=== PATIENT | male | born 1990 | race Hispanic/Latino ===

== ENCOUNTER 2019-12-23 19:11 | Observation (INO) | payer SELFPAY ==
[2019-12-23] MEDS ORDERED: METHYLPREDNISOLONE 125 MG INJ ONE (19:43)
[2019-12-23] MEDS ORDERED: IPRATROPIUM BROM 0.5MG/2.5ML ONE (19:44)
[2019-12-23] MEDS ORDERED: NA CHLORIDE 0.9% 1,000 ML ONE (19:44)
[2019-12-23] MEDS ORDERED: ALBUTEROL 2.5 MG/3 ML NEB SOL ONE (19:44)
[2019-12-23 20:14] LABS: Basophils % 0.5 % (0-1.3); Hematocrit 45.4 % (39.6-49.0); Lymphocytes % 14.8 % (15.3-44.8); MPV 9.2 fL (7.6-11.3); RBC Red Blood Cell Count 5.49 M/uL (4.33-5.43)
[2019-12-23 20:15] LABS: Protime INR 1.11
[2019-12-23 20:31] LABS: ALT/SGPT 25 U/L (12-78); AST/SGOT 20 U/L (15-37); Albumin 4.1 g/dL (3.4-5.0); Alkaline Phosphatase 78 U/L (45-117); BUN Blood Urea Nitrogen 13 mg/dL (7-18); Bicarbonate 28 mmol/L (21-32); Bilirubin Direct 0.1 mg/dL (0-0.2); Bilirubin Total 0.4 mg/dL (0.2-1.0); Glucose Level 91 mg/dL (74-106); Magnesium 2.1 mg/dL (1.8-2.4); NT PRO-BNP 31 pg/mL (<125); Protein, Total 7.7 g/dL (6.4-8.2); Sodium Level 141 mmol/L (136-145); Troponin (Emerg Dept Use Only) < 0.02 ng/mL (0.0-0.045)
[2019-12-23 21:10] LABS: Barbiturates NEGATIVE (NEGATIVE); Benzodiazepines NEGATIVE (NEGATIVE); Cocaine NEGATIVE (NEGATIVE); METHAMPHETAM NEGATIVE (NEGATIVE); Methadone NEGATIVE (NEGATIVE); Opiates NEGATIVE (NEGATIVE); Phencyclidine NEGATIVE (NEGATIVE); THC Cannibis NEGATIVE (NEGATIVE)
[2019-12-23 21:19] LABS: Urine Blood NEGATIVE (NEG); Urine Glucose NEGATIVE (NEG); Urine Protein NEGATIVE (NEG)
[2019-12-23 21:20] LABS: Arterial Blood Carboxyhemoglob 0.9 % (0-1.5); Blood Gas Oxyhemoglobin 90.1 % (94-97); Blood O2 Saturation 91.6 % (92-98.5)
[2019-12-23] MEDS ORDERED: METOPROLOL TARTRATE 5 MG/5 ML INJ IV ONE (21:26)
--- NOTE | 2019-12-23 22:30 | EDPHYS ---
Physician Documentation [facility] Name: Mike Steen Age: 29 yrs Sex: Male : 1990 Arrival Date: 12/23/2019 Time: 19:14 Bed 5 Private MD: None, None ED Physician Italo Stokes HPI: 12/23 19:34 This 29 yrs old Male presents to ER via Ambulatory with complaints of pkl Breathing Difficulty. 19:34 The patient has shortness of breath at rest. Onset: The symptoms/episode began/occurred pkl this morning. Associated signs and symptoms: Pertinent positives: non-productive cough. The patient has experienced similar episodes in the past, a few times. Historical: - Allergies: 19:18 No Known Allergies; aj1 - Home Meds: 19:18 Buspirone Oral [Active]; aj1 - PMHx: 19:18 Anxiety; aj1 - Immunization history:: Flu vaccine is not up to date. - Coronavirus screen:: The patient has NOT traveled to [place], [place], or [place] in the past 14 days. - Social history:: Smoking status: Patient reports the use of cigarette tobacco products, 6 cigarettes per day. - Ebola Screening: : Patient denies travel to an Ebola-affected area in the 21 days before illness onset. ROS: 19:34 Eyes: Negative for injury, pain, redness, and discharge, ENT: Negative for injury, pkl pain, and discharge, Neck: Negative for injury, pain, and swelling, Cardiovascular: Negative for chest pain, palpitations, and edema. 19:34 Respiratory: Positive for cough, with no reported sputum, shortness of breath, at rest. 19:34 Abdomen/GI: Negative for abdominal pain, nausea, vomiting, and diarrhea. 19:34 Back: Negative for pain at rest. 19:34 : Negative for urinary symptoms. 19:34 MS/extremity: Negative for acute changes. 19:34 Skin: Negative for rash. 19:34 Neuro: Negative for altered mental status. Exam: 19:34 Head/Face: Normocephalic, atraumatic. Eyes: Pupils equal round and reactive to light, pkl extra-ocular motions intact. Lids and lashes normal. Conjunctiva and sclera are non-icteric and not injected. Cornea within normal limits. Periorbital areas with no swelling, redness, or edema. ENT: Nares patent. No nasal discharge, no septal abnormalities noted. Tympanic membranes are normal and external auditory canals are clear. Oropharynx with no redness, swelling, or masses, exudates, or evidence of obstruction, uvula midline. Mucous membranes moist. Neck: Trachea midline, no thyromegaly or masses palpated, and no cervical lymphadenopathy. Supple, full range of motion without nuchal rigidity, or vertebral point tenderness. No Meningismus. Chest/axilla: Normal chest wall appearance and motion. Nontender with no deformity. No lesions are appreciated. Cardiovascular: Regular rate and rhythm with a normal S1 and S2. No gallops, murmurs, or rubs. Normal PMI, no JVD. No pulse deficits. 19:34 Respiratory: mild respiratory distress is noted, Respirations: labored breathing, that is mild, Breath sounds: bronchial sounds, that are moderate, are heard diffusely, rhonchi, that are moderate, are heard diffusely. 19:34 Abdomen/GI: Bowel sounds: normal, Palpation: abdomen is soft and non-tender, in all quadrants. 19:34 Back: Exam negative for acute changes. 19:34 : Exam negative for acute changes. 19:34 Musculoskeletal/extremity: Exam is negative for acute changes. 19:34 Skin: Exam negative for rash. 19:34 Neuro: Orientation: is normal, Mentation: is normal, Cranial nerves: grossly normal, Motor: is normal. Vital Signs: 19:15 BP 120 / 86; Pulse 138; Resp 32; Temp 98.5; Pulse Ox 94% on R/A; Weight 74.84 kg (R); aj1 Height 5 ft. 9 in. (175.26 cm) (R); Pain 0/10; 20:00 BP 135 / 88; Pulse 112; Resp 18; Pulse Ox 96% ; ea 21:30 BP 135 / 79; Pulse 112; Resp 19; Pulse Ox 99% on R/A; rr5 21:36 BP 121 / 78; Pulse 91; Resp 17; Pulse Ox 98% ; rr5 22:20 BP 128 / 81; Pulse 92; Resp 16; Pulse Ox 98% ; rr5 23:10 BP 132 / 81; Pulse 85; Resp 18; Temp 98; Pulse Ox 98% on R/A; ea 23:30 BP 132 / 81; Pulse 82; Resp 20; Temp 98; Pulse Ox 99% ; Pain 0/10; rr5 19:15 Body Mass Index 24.37 (74.84 kg, 175.26 cm) aj1 MDM: 19:22 Patient medically screened. pkl 20:37 Data reviewed: vital signs, nurses notes, lab test result(s), D-dimer ( 833 ) CT PE pkl Chest Angio ordered.. 22:27 Data reviewed: radiologic studies, CT scan, plain films. ED course: Talked to Dr. Lara, [facility] admit. 12/23 19:32 Order name: Basic Metabolic Panel; Complete Time: 20:33 pkl 12/23 19:32 Order name: CBC with Diff; Complete Time: 20:27 pkl 12/23 19:32 Order name: LFT's; Complete Time: 20:33 pkl 12/23 19:32 Order name: Magnesium; Complete Time: 20:33 pkl 12/23 19:32 Order name: NT PRO-BNP; Complete Time: 20:33 pkl 12/23 19:32 Order name: PT-INR; Complete Time: 20:27 pkl 12/23 19:32 Order name: Troponin (emerg Dept Use Only); Complete Time: 20:33 pkl 12/23 19:34 Order name: D-Dimer; Complete Time: 20:27 pkl 12/23 19:34 Order name: UDS; Complete Time: 22:07 pkl 12/23 19:34 Order name: ABG; Complete Time: 22:07 pkl 12/23 21:00 Order name: Urine Dipstick--Ancillary (enter results); Complete Time: 22:07 mw2 12/23 23:20 Order name: CBC with Automated Diff EDMS 12/23 23:20 Order name: CBC with Automated Diff EDMS 12/23 23:20 Order name: Comprehensive Metabolic Panel EDMS 12/23 19:32 Order name: XRAY Chest (1 view) pkl 12/23 19:32 Order name: EKG; Complete Time: 19:33 pkl 12/23 19:32 Order name: Cardiac monitoring; Complete Time: 20:13 pkl 12/23 19:32 Order name: EKG - Nurse/Tech; Complete Time: 20:13 pkl 12/23 19:32 Order name: IV Saline Lock; Complete Time: 20:13 pkl 12/23 19:32 Order name: Labs collected and sent; Complete Time: 20:13 pkl 12/23 19:32 Order name: O2 Per Protocol; Complete Time: 20:13 pkl 12/23 20:34 Order name: CT Chest For PE Angio pkl 12/23 23:20 Order name: CONS Pharmacy Consult EDNY 12/23 23:20 Order name: CONS Physician Consult EDNY 12/23 23:20 Order name: Heart Healthy EDNY 12/23 23:20 Order name: Comprehensive Metabolic Panel EDNY 12/23 19:32 Order name: O2 Sat Monitoring; Complete Time: 20:13 pkl Administered Medications: 19:45 Drug: Albuterol - atroVENT (3:1) (2.5 mg - 0.5 mg) 3 ml Route: Nebulizer; ea 20:45 Follow up: Response: No adverse reaction rr5 20:04 Drug: NS 0.9% 1000 ml Route: IV; Rate: 125 ml/hr; Site: right antecubital; ea 23:30 Follow up: IV Status: Infusion continued upon admission; IV Intake: 350ml rr5 23:37 Follow up: Response: No adverse reaction; IV Status: Infusion continued upon admission rr5 20:04 Drug: SOLU-Medrol 125 mg Route: IVP; Site: right antecubital; ea 21:00 Follow up: Response: No adverse reaction; Marked relief of symptoms rr5 21:30 Drug: Lopressor 5 mg Route: IVP; Site: right antecubital; rr5 22:30 Follow up: Response: No adverse reaction; HR 89bpm rr5 Disposition: 12/23/19 22:30 Hospitalization ordered by Tao Lara for Inpatient Admission. Preliminary diagnosis is Acute dyspnea. Asthmatic bronchitis. Pneumomediastinum. - Bed requested for Telemetry/MedSurg (Inpatient). - Status is Inpatient Admission. rr5 - Condition is Stable. - Problem is new. - Symptoms have improved. UTI on Admission? No Signatures: Dispatcher [employer] Patricia Dixon RN RN aj1 Webb, Martha, RN RN mw Lam, Pin, MD MD pkl Antunez, Elena, RN RN ea Roque, Raymond, RN RN rr5 Corrections: (The following items were deleted from the chart) 23:05 22:30 Hospitalization Ordered by Tao Lara MD for Inpatient Admission. Preliminary mw diagnosis is Acute dyspnea. Asthmatic bronchitis. Pneumomediastinum. Bed requested for Telemetry/MedSurg (Inpatient). Status is Inpatient Admission. Condition is Stable. Problem is new. Symptoms have improved. UTI on Admission? No. pkl 23:45 23:05 12/23/2019 22:30 Hospitalization Ordered by Tao Lara MD for Inpatient rr5 Admission. Preliminary diagnosis is Acute dyspnea. Asthmatic bronchitis. Pneumomediastinum. Bed requested for Telemetry/MedSurg (Inpatient). Status is Inpatient Admission. Condition is Stable. Problem is new. Symptoms have improved. UTI on Admission? No. mw
--- NOTE | 2019-12-23 22:30 | ER ---
Nurse's Notes [facility] Name: Mike Steen Age: 29 yrs Sex: Male : 1990 Arrival Date: 12/23/2019 Time: 19:14 Bed 5 Private MD: None, None Diagnosis: Acute dyspnea. Asthmatic bronchitis. Pneumomediastinum Presentation: 12/23 19:15 Presenting complaint: Patient states: Shortness of breath since 11:30 today, patient aj1 reports cough since yesterday. Denies fever. Patient is tachypneic with labored respirations, patient is unable to speak a full sentence without taking a breath. Transition of care: patient was not received from another setting of care. Onset of symptoms was December 23, 2019 at 11:30. Risk Assessment: Do you want to hurt yourself or someone else? Patient reports no desire to harm self or others. Initial Sepsis Screen: Does the patient meet any 2 criteria? RR > 20 per min. HR > 90 bpm. Does the patient have a suspected source of infection? Yes: Productive cough/pneumonia. Care prior to arrival: None. 19:15 Method Of Arrival: Ambulatory aj 19:15 Acuity: TICO 2 aj1 Triage Assessment: 19:18 General: Appears uncomfortable, Behavior is calm, cooperative, appropriate for age. aj1 Pain: Denies pain. Neuro: Level of Consciousness is awake, alert, obeys commands, Oriented to person, place, time, situation. Cardiovascular: Patient's skin is warm and dry. Respiratory: Reports shortness of breath at rest cough that is non-productive, Airway is patent Respiratory effort is even, labored, Respiratory pattern is regular, tachypnea Onset: The symptoms/episode began/occurred suddenly, the patient has moderate shortness of breath. Historical: - Allergies: 19:18 No Known Allergies; aj1 - Home Meds: 19:18 Buspirone Oral [Active]; aj1 - PMHx: 19:18 Anxiety; aj1 - Immunization history:: Flu vaccine is not up to date. - Coronavirus screen:: The patient has NOT traveled to [place], [place], or [place] in the past 14 days. - Social history:: Smoking status: Patient reports the use of cigarette tobacco products, 6 cigarettes per day. - Ebola Screening: : Patient denies travel to an Ebola-affected area in the 21 days before illness onset. Screenin:06 Abuse screen: Denies threats or abuse. Nutritional screening: No deficits noted. ea Tuberculosis screening: No symptoms or risk factors identified. Fall Risk None identified. Assessment: 19:36 General: Appears uncomfortable, Behavior is appropriate for age. Pain: Denies pain. ea Neuro: Level of Consciousness is awake, alert, obeys commands, Oriented to person, place, time, situation. Cardiovascular: Patient's skin is warm and dry. Respiratory: Airway is patent Respiratory effort is even, labored, Respiratory pattern is symmetrical, tachypnea Breath sounds with wheezes. Derm: Skin is pink, warm \T\ dry. 20:55 Reassessment: Patient and/or family updated on plan of care and expected duration. Pain ea level reassessed. Patient is alert, oriented x 3, equal unlabored respirations, skin warm/dry/pink. Pt taken to CT. 21:37 Reassessment: Patient appears in no apparent distress at this time. Patient is alert, rr5 oriented x 3, equal unlabored respirations, skin warm/dry/pink. no complaints made, awaiting for result. Patient states symptoms have improved. 22:22 Reassessment: Patient and/or family updated on plan of care and expected duration. Pain ea level reassessed. Patient is alert, oriented x 3, equal unlabored respirations, skin warm/dry/pink. 23:10 Reassessment: Patient and/or family updated on plan of care and expected duration. Pain ea level reassessed. Patient is alert, oriented x 3, equal unlabored respirations, skin warm/dry/pink. 23:35 Cardiovascular: Rhythm is sinus rhythm. rr5 23:35 Reassessment: Patient appears in no apparent distress at this time. Patient is alert, rr5 oriented x 3, equal unlabored respirations, skin warm/dry/pink. for transfer to room 406 Patient denies pain at this time. Patient states feeling better. Patient states symptoms have improved. Vital Signs: 19:15 BP 120 / 86; Pulse 138; Resp 32; Temp 98.5; Pulse Ox 94% on R/A; Weight 74.84 kg (R); aj1 Height 5 ft. 9 in. (175.26 cm) (R); Pain 0/10; 20:00 BP 135 / 88; Pulse 112; Resp 18; Pulse Ox 96% ; ea 21:30 BP 135 / 79; Pulse 112; Resp 19; Pulse Ox 99% on R/A; rr5 21:36 BP 121 / 78; Pulse 91; Resp 17; Pulse Ox 98% ; rr5 22:20 BP 128 / 81; Pulse 92; Resp 16; Pulse Ox 98% ; rr5 23:10 BP 132 / 81; Pulse 85; Resp 18; Temp 98; Pulse Ox 98% on R/A; ea 23:30 BP 132 / 81; Pulse 82; Resp 20; Temp 98; Pulse Ox 99% ; Pain 0/10; rr5 19:15 Body Mass Index 24.37 (74.84 kg, 175.26 cm) aj1 ED Course: 19:14 Patient arrived in ED. es 19:14 None, None is Private Physician. es 19:15 Arm band placed on Patient placed in an exam room. aj1 19:18 Triage completed. aj1 19:22 Italo Stokes MD is Attending Physician. pkl 19:36 Stacy Mejía RN is Primary Nurse. ea 20:06 Patient has correct armband on for positive identification. Bed in low position. Call ea light in reach. 20:06 Inserted saline lock: 20 gauge in right antecubital area, using aseptic technique. ea Blood collected. 20:26 Notified ED physician of a critical lab result(s). D-Dimer of 833 Dr Stokes notified. bb 20:48 XRAY Chest (1 view) In Process Unspecified. EDMS 20:50 X-ray completed. Portable x-ray completed in exam room. Patient tolerated procedure mh1 well. 21:15 CT Chest For PE Angio In Process Unspecified. EDMS 22:28 Tao Lara MD is Hospitalizing Provider. pkl 23:09 No provider procedures requiring assistance completed. Patient admitted, IV remains in ea place. Administered Medications: 19:45 Drug: Albuterol - atroVENT (3:1) (2.5 mg - 0.5 mg) 3 ml Route: Nebulizer; ea 20:45 Follow up: Response: No adverse reaction rr5 20:04 Drug: NS 0.9% 1000 ml Route: IV; Rate: 125 ml/hr; Site: right antecubital; ea 23:30 Follow up: IV Status: Infusion continued upon admission; IV Intake: 350ml rr5 23:37 Follow up: Response: No adverse reaction; IV Status: Infusion continued upon admission rr5 20:04 Drug: SOLU-Medrol 125 mg Route: IVP; Site: right antecubital; ea 21:00 Follow up: Response: No adverse reaction; Marked relief of symptoms rr5 21:30 Drug: Lopressor 5 mg Route: IVP; Site: right antecubital; rr5 22:30 Follow up: Response: No adverse reaction; HR 89bpm rr5 Intake: 23:30 IV: 350ml; Total: 350ml. rr5 Outcome: 22:30 Decision to Hospitalize by Provider. pkl 23:09 Discharge instructions given to patient, Instructed on the need for admit, Demonstrated ea understanding of instructions. 23:35 Admitted to Tele accompanied by tech, via wheelchair, room 406, with chart, Report rr5 called to martina 23:35 Condition: stable 23:45 Patient left the ED. rr5 Signatures: Dispatcher [employer] Patricia Juarez RN RN aj Italo Stokes MD MD pkl Salyer, Edna es Harvey, Martha [facility] Gaviota Cummings RN RN bb Antunez, Elena, RN RN ea Roque, Raymond RN RN rr5 Corrections: (The following items were deleted from the chart) 19:18 19:14 Presenting complaint: aj1 aj 19:21 19:15 Presenting complaint: Patient states: Shortness of breath since 11:30 today, aj1 patient reports cough since yesterday. Denies fever. [facility] 19:21 19:15 Acuity: TICO 3 aj1 [facility]
[2019-12-23] MEDS ORDERED: MORPHINE 2 MG/ML SYR IV PRN (23:14)
[2019-12-23] MEDS ORDERED: ONDANSETRON 4 MG/2 ML VIAL IV PRN (23:14)
[2019-12-23] MEDS ORDERED: ACETAMINOPHEN 500 MG TAB PO PRN (23:14)
[2019-12-23] MEDS ORDERED: D5 0.9 NS 1,000 ML IV SCH (23:45)
[2019-12-23] MEDS: NA CHLORIDE 0.9% 1,000 ML IV SCH (23:45)
[2019-12-24 00:45] VITALS: BMI 24.0
[2019-12-24] MEDS ORDERED: ALBUTEROL 2.5 MG/3 ML NEB SOL NEB SCH (01:00)
[2019-12-24] MEDS: METHYLPREDNISOLONE 125 MG INJ IV SCH ×3 (01:23→11:21)
[2019-12-24] MEDS ORDERED: IPRATROPIUM BROM 0.5MG/2.5ML NEB SCH (02:00)
[2019-12-24] MEDS ORDERED: ALBUTEROL 2.5 MG/3 ML NEB SOL ONE (03:18)
[2019-12-24] MEDS: IPRATROPIUM BROM 0.5MG/2.5ML NEB SCH ×2 (03:35→08:20)
[2019-12-24] MEDS ORDERED: GUAIFENESIN/CODEINE 5ML UCUP PO PRN (04:07)
[2019-12-24 05:25] LABS: Absolute Lymphocytes (CBC) 0.7 K/uL (0.7-4.9); Basophils % 0.1 % (0-1.3); Hematocrit 43.2 % (39.6-49.0); Lymphocytes % 7.6 % (15.3-44.8); MPV 9.3 fL (7.6-11.3); RBC Red Blood Cell Count 5.19 M/uL (4.33-5.43)
[2019-12-24 05:49] LABS: Albumin 3.7 g/dL (3.4-5.0); Bilirubin Total 0.5 mg/dL (0.2-1.0); Potassium 4.2 mmol/L (3.5-5.1); Protein, Total 7.1 g/dL (6.4-8.2)
[2019-12-24] MEDS: NA CHLORIDE 0.9% 1,000 ML IV SCH (05:55)
--- NOTE | 2019-12-24 07:35 | RAD REPORT ---
EXAM DESCRIPTION: RAD - Chest Single View - 12/24/2019 7:04 am CLINICAL HISTORY: Pneumomediastinum history COMPARISON: Chest Single View dated 12/23/2019; Chest For Pe Angio dated 12/23/2019 TECHNIQUE: AP portable chest image was obtained 12/24/2019 7:04 amthe . FINDINGS: Lung alvarez are clear. Pneumomediastinum seen on the CT study has either cleared or is rad iographically occult. Heart and vasculature are normal. No measurable pleural effusion and no pneumot horax. No acute bony abnormality seen. No acute aortic findings suspected. IMPRESSION: No acute cardiopulmonary process. No new or progressive process from prior imaging. Pneumomediastinum seen on the prior day CT study has cleared or is radiographically occult.
[2019-12-24 07:56] LABS: Blood Morphology Comment NOT SEEN (NOT SEEN); Platelet Estimate ADEQ; Urine White Blood Cell Casts OK
--- NOTE | 2019-12-24 07:59 | RAD REPORT ---
EXAM DESCRIPTION: RAD - Chest Single View - 12/23/2019 8:48 pm CLINICAL HISTORY: Cough;Dyspnea COMPARISON: Chest For Pe Angio dated 12/23/2019; Chest Single View dated 12/24/2019 TECHNIQUE: AP portable chest image was obtained 12/23/2019 8:48 pm . FINDINGS: Lung alvarez are clear. Mediastinal and hilar regions show no suspicious finding. Heart and vasculature are normal. No measurable pleural effusion and no pneumothorax. No acute bony abnormalit y seen. No acute aortic findings suspected. IMPRESSION: No acute cardiopulmonary process.
--- NOTE | 2019-12-24 08:25 | EKG ---
Test Date: 2019-12-23 Test Time: 19:50:43 Key Carrier: LEBRON MEASUREMENT RESULTS: Intervals: Rate: 121 IN: 138 QRSD: 78 QT: 330 QTc: 468 Annabella: P: 71 IN: 138 QRS: 25 T: 62 INTERPRETIVE STATEMENTS: Sinus tachycardia Possible Left atrial enlargement Borderline ECG No previous ECG available for comparison Electronically Signed On 12-24-19 08:24:51 [employer] by Ezequiel Allen
[2019-12-24] MEDS ORDERED: DULERA 200/5 (MOMETASONE/FORMOTEROL) INHALER IH SCH (09:00)
--- NOTE | 2019-12-24 09:44 | P.HP ---
Certification for Inpatient Patient admitted to: Observation With expected LOS: <2 Midnights Patient will require the following post-hospital care: None Practitioner: I am a practitioner with admitting privileges, knowledge of patient current condition, hospital course, and medical plan of care. Services: Services provided to patient in accordance with Admission requirements found in Title 42 Section 412.3 of the Code of Federal Regulations Patient History Date of Service: 12/23/19 Reason for admission: Spontaneous pneumomediastinum History of Present Illness: Patient is a 29-year-old gentleman who came to the hospital with chest discomfort. He had been coughing quite a bit and he has had a upper respiratory infection. He said his cough is worse at night. He does not have a history of asthma or any other pulmonary issues. He came into the emergency room for further evaluation. In the ER he had a chest x-ray which did not reveal any abnormalities except for a small pneumomediastinum. Patient had a CT of the chest which revealed the mediastinum but no pulmonary embolism. Patient be admitted for further evaluation. Allergies No Known Allergies Allergy (Unverified 12/23/19 23:24) - Past Medical/Surgical History Has patient received pneumonia vaccine in the past: No Diabetic: No -: anxiety -: stitches to left hand during youth - Family History Father History Unknown: Yes Mother Medical History: Heart disease, Cancer, Other (see notes) Notes: thyroid. cancer years ago, not sure which type - Social History Smoking Status: Current every day smoker Alcohol use: No CD- Drugs: No Caffeine use: Yes Place of Residence: Home Review of Systems 10-point ROS is otherwise unremarkable Physical Examination - Vital Signs Temperature: 97.6 F Blood Pressure: 120/63 Pulse: 82 Respirations: 16 Pulse Ox (%): 93 - Physical Exam General: Alert, In no apparent distress, Oriented x3 HEENT: Atraumatic, PERRLA, Mucous membr. moist/pink, EOMI, Sclerae nonicteric Neck: Supple, 2+ carotid pulse no bruit, No LAD, Without JVD or thyroid abnormality Respiratory: Clear to auscultation bilaterally, Normal air movement Cardiovascular: Regular rate/rhythm, Normal S1 S2, No murmurs Gastrointestinal: Normal bowel sounds, Soft and benign, Non-distended, No tenderness Musculoskeletal: No clubbing, No swelling, No tenderness Integumentary: No rashes Neurological: Normal gait, Normal speech, Normal strength at 5/5 x4 extr, Normal tone, Sensation intact, Cranial nerves 3-12 intact, Normal affect Lymphatics: No axilla or inguinal lymphadenopathy - Studies Laboratory Data (last 24 hrs) 12/23/19 19:58: PT 13.0 H, INR 1.11 12/23/19 19:58: WBC 13.6 H, Hgb 15.0, Hct 45.4, Plt Count 205 12/23/19 19:58: Sodium 141, Potassium 4.0, BUN 13, Creatinine 1.04, Glucose 91, Magnesium 2.1, Total Bilirubin 0.4, AST 20, ALT 25, Alkaline Phosphatase 78 Assessment & Plan - Problems (Diagnosis) (1) Acquired pneumomediastinum Current Visit: Yes Status: Acute (2) Upper respiratory infection Current Visit: Yes Status: Acute - Plan Plan: 1. Continue with albuterol and Atrovent nebs 2. Continue with IV steroids 3. Room air O2 sats 4. Oxygen saturate 5. GI and DVT prophylaxis Discharge Plan: Home Plan to discharge in: 24 Hours - Advance Directives Does patient have a Living Will: No Does patient have a Durable POA for Healthcare: No - Code Status/Comfort Care Code Status Assessed: Yes Code Status: Full Code Critical Care: No Time Spent Managing PTS Care (In Minutes): 45
--- NOTE | 2019-12-24 09:50 | P.DS ---
Discharge Date: 12/24/19 Disposition: ROUTINE DISCHARGE Discharge Condition: GOOD Reason for Admission: Spontaneous pneumomediastinum - Problems (1) Acquired pneumomediastinum Current Visit: Yes Status: Acute (2) Upper respiratory infection Current Visit: Yes Status: Acute Brief History of Present Illness: Patient is a 29-year-old gentleman who came to the hospital with chest discomfort. He had been coughing quite a bit and he has had a upper respiratory infection. He said his cough is worse at night. He does not have a history of asthma or any other pulmonary issues. He came into the emergency room for further evaluation. In the ER he had a chest x-ray which did not reveal any abnormalities except for a small pneumomediastinum. Patient had a CT of the chest which revealed the mediastinum but no pulmonary embolism. Patient be admitted for further evaluation. Hospital Course: Patient's chest x-ray this morning does not reveal any evidence of anemia mediastinum. Patient is clinically doing well. Patient with no complaints. Anticipate discharge home with outpatient follow-up in 1-2 weeks with Pulmonary. Return to the ER if patient's symptoms worsen. Vital Signs/Physical Exam: Temp Pulse Resp BP Pulse Ox 97.6 F 82 16 120/63 93 12/24/19 09:45 12/24/19 09:45 12/24/19 09:45 12/24/19 09:45 12/24/19 09:45 General: Alert, In no apparent distress, Oriented x3 Laboratory Data at Discharge: WBC 9.5 K/uL (4.3-10.9) D 12/24/19 05:06 Hgb 14.1 g/dL (13.6-17.9) 12/24/19 05:06 Hct 43.2 % (39.6-49.0) 12/24/19 05:06 Plt Count 200 K/uL (152-406) 12/24/19 05:06 PT 13.0 SECONDS (9.5-12.5) H 12/23/19 19:58 INR 1.11 12/23/19 19:58 Sodium 140 mmol/L (136-145) 12/24/19 05:06 Potassium 4.2 mmol/L (3.5-5.1) 12/24/19 05:06 BUN 14 mg/dL (7-18) 12/24/19 05:06 Creatinine 1.16 mg/dL (0.55-1.3) 12/24/19 05:06 Glucose 186 mg/dL (74-106) H 12/24/19 05:06 Magnesium 2.1 mg/dL (1.8-2.4) 12/23/19 19:58 Total Bilirubin 0.5 mg/dL (0.2-1.0) 12/24/19 05:06 AST 11 U/L (15-37) L 12/24/19 05:06 ALT 23 U/L (12-78) 12/24/19 05:06 Alkaline Phosphatase 65 U/L (45-117) 12/24/19 05:06 Home Medications: Albuterol Inhaler [Ventolin Inhaler*] 2 puff IH Q6H PRN #1 hfa.aer.ad 12/24/19 Guaifen W/Codeine Syrup [ROBITUSSIN A-C Syrup*] 10 ml PO BID PRN #100 ml predniSONE [Deltasone] 20 mg PO BID #10 tab 12/24/19 New Medications: Albuterol Inhaler [Ventolin Inhaler*] 2 puff IH Q6H PRN #1 hfa.aer.ad PRN Reason: Shortness Of Breath Guaifen W/Codeine Syrup [ROBITUSSIN A-C Syrup*] 10 ml PO BID PRN #100 ml PRN Reason: Cough predniSONE [Deltasone] 20 mg PO BID #10 tab Patient Discharge Instructions: OK TO DC IV AND DC HOME. FOLLOW-UP WITH PRIMARY CARE PROVIDER IN 1-2 WEEKS. FOLLOW-UP WITH Pulmonary IN 1-2 WEEKS. RETURN TO THE ER IF symptoms worsen. CALL or TEXT DR. BERTRAND AT [phone] IF ANY QUESTIONS REGARDING HOSPITAL STAY. PLEASE CALL THE FLOOR AT [phone] IF ANY MEDICATION OR NURSING QUESTIONS. Diet: Regular Activity: Fall precautions
--- NOTE | 2019-12-24 10:15 | RAD REPORT ---
EXAM DESCRIPTION: CT - Chest For Pe Angio - 12/23/2019 9:15 pm CLINICAL HISTORY: Dyspnea, shortness of breath, cough since yesterday TECHNIQUE: Contiguous axial images obtained through the chest during angiographic phase following th e uneventful administration of IV contrast. Coronal reformatted images were provided. MIP reformatted images were provided. This exam was performed according to our departmental dose-optimization program, which includes autom ated exposure control, adjustment of the mA and/or kV according to patient size and/or use of iterati ve reconstruction technique. COMPARISON: No prior exams provided for comparison. FINDINGS: Diagnostic quality: There is good opacification of the pulmonary arterial tree. Motion art ifact degrades image quality and limits evaluation of segmental and subsegmental vessels. Lungs: Mild mosaic attenuation within upper lobe predominance. No focal consolidation. Minimal right basilar mucous plugging.. Pleura: No effusion. No pneumothorax. Heart and pericardium: The heart is normal in size. No pericardial effusion. Mediastinum and chilo: Small amount of pneumomediastinum. Calcified mediastinal lymph nodes. No pathol ogically enlarged lymph nodes. Lower neck and chest wall: Unremarkable Vessels: No pulmonary arterial filling defects. No thoracic aortic aneurysm. Upper abdomen: Unremarkable Bones: Unremarkable IMPRESSION: 1. Motion artifact degrades image quality and limits evaluation of subsegmental vessel s. No central or proximal segmental pulmonary embolic disease. 2. Small amount of pneumomediastinum which may be secondary to reported history of coughing. 3. Minimal right basilar mucous plugging. Mild mosaic attenuation within upper lobe predominance. D ifferential considerations include small airways disease, small vessel disease and interstitial infil trates. 4. Other findings as above. Electronically signed by: Latanya Salazar MD 12/23/2019 9:27 PM [employer] Due to temporary technical issues with the PACS/Fluency reporting system, reports are being signed by the in house radiologist as a courtesy to ensure prompt reporting. The interpreting radiologist is f ully responsible for the content of the report.
[2019-12-24 11:07] VITALS: O2SAT 92
--- NOTE | 2019-12-24 12:03 | P.CNS ---
Date of Consult: 12/24/19 Chief Complaint: Shortness of breath History of Present Illness: Patient is 29 years of age has been having intermittent dyspnea for the past 3- 4 months became worse over the past day the developed more problems at night no prior history of obstructive airways disease shortness of breath became progressively worse and was admitted to the hospital Allergies No Known Allergies Allergy (Unverified 12/23/19 23:24) Home Medications: Albuterol Inhaler [Ventolin Inhaler*] 2 puff IH Q6H PRN #1 hfa.aer.ad 12/24/19 Guaifen W/Codeine Syrup [ROBITUSSIN A-C Syrup*] 10 ml PO BID PRN #100 ml predniSONE [Deltasone] 20 mg PO BID #10 tab 12/24/19 - Past Medical/Surgical History Diabetic: No -: anxiety -: stitches to left hand during youth - Family History Father History Unknown: Yes Mother Medical History: Heart disease, Cancer, Other (see notes) Notes: thyroid. cancer years ago, not sure which type - Social History Alcohol use: No CD- Drugs: No Caffeine use: Yes Place of Residence: Home Review of Systems 10-point ROS is otherwise unremarkable Physical Examination Temp Pulse Resp BP Pulse Ox 97.6 F 82 16 120/63 93 12/24/19 09:45 12/24/19 09:45 12/24/19 09:45 12/24/19 09:45 12/24/19 09:45 General: Alert, Oriented x3 Respiratory: Expiratory wheezes Cardiovascular: No edema, Normal pulses, Normal S1 S2 Laboratory Data (last 24 hrs) 12/23/19 19:58: PT 13.0 H, INR 1.11 12/23/19 19:58: WBC 13.6 H, Hgb 15.0, Hct 45.4, Plt Count 205 12/23/19 19:58: Sodium 141, Potassium 4.0, BUN 13, Creatinine 1.04, Glucose 91, Magnesium 2.1, Total Bilirubin 0.4, AST 20, ALT 25, Alkaline Phosphatase 78 - Problems (1) Asthma Current Visit: Yes Status: Acute Plan: Patient is 29 years of age admitted with worsening intermittent dyspnea worse at night the past 3-4 months he is actively wheezing most likely he has obstructive airways disease minimal pneumomediastinum patient was hypoxic when he came in and be discharged home on prednisone and Dulera follow up with me in 2 weeks Qualifiers: Asthma severity: unspecified severity
[2019-12-24 12:23] VITALS: BP 135/63; TEMP 98.3
[2019-12-26] MEDS ORDERED: ALBUTEROL 2.5 MG/3 ML NEB SOL NEB SCH (23:30)
== END 2019-12-24 14:59 | disposition home or self-care (01) ==
LOC: ER 19:11 → ERHOLD 23:15 → 4TH 23:34
PROVIDERS: ADMIT Hospitalist; ATTEND Hospitalist
DX: J98.2 Interstitial emphysema (principal); J06.9 Acute upper respiratory infection, unspecified; J45.909 Unspecified asthma, uncomplicated; R09.02 Hypoxemia
CPT/HCPCS: 36415; 71045; 71275; 80048; 80053; 80076; 80307; 81003; 82805; 83735; 83880; 84484; 85025; 85379; 85610; 93005; 94640; 96361; 96374; 96375; 99285; G0378; J2930; J7030; J7606; Q9967

== ENCOUNTER → 2024-01-27 | Emergency (ER) | payer SELFPAY ==
[~2024-01-27] MED LIST: IBUPROFEN 200 MG TAB PO ONE; IBUPROFEN 400 MG TAB ONE
--- NOTE | 2024-01-27 13:33 | RAD REPORT ---
EXAM DESCRIPTION: RAD - Sacrum And Coccyx - 01/27/2024 1:20 pm CLINICAL HISTORY: fall;Pain COMPARISON: Lumbar Spine 3 Views dated 01/27/2024 FINDINGS/IMPRESSION: Sacral fracture identified at the S3-S4 junction with mild posterior displaceme nt. This is only well seen on the lateral view. Could consider CT to confirm and better delineate if clinically indicated.
--- NOTE | 2024-01-27 13:45 | RAD REPORT ---
EXAM DESCRIPTION: RAD - Lumbar Spine 3 Views - 01/27/2024 1:20 pm CLINICAL HISTORY: fall COMPARISON: No comparisons FINDINGS/IMPRESSION: No acute fracture. Minimal thoracolumbar curvature. No significant focal degene rative changes.
--- NOTE | 2024-01-27 14:07 | EDPHYS ---
Physician Documentation [facility] Name: Mike Steen Age: 33 yrs Sex: Male : 1990 Arrival Date: 01/27/2024 Time: 12:25 Bed IW1 Private MD: ED Physician Ulices Farris HPI: 01/26 14:07 This 33 yrs old Male presents to ER via Wheelchair with complaints of Fall ms3 Injury, tailbone pain. 14:07 33-year-old male with past medical history of anxiety presents to the emergency ms3 department after getting out of a truck that was up on a lift and sleeping landing on the step of the left. Patient states the pain is a 9/10 located in his sacrum. Patient states sitting makes the pain worse. Patient denies any alleviating factors. Historical: - Allergies: 12:41 No Known Allergies; aa5 - PMHx: 12:31 Anxiety; aa5 - Immunization history:: Adult Immunizations unknown. - Social history:: Smoking status: Patient denies any tobacco usage or history of. ROS: 14:07 Constitutional: Negative for fever, and chills. Neck: Negative for injury, pain, and ms3 swelling, Cardiovascular: Negative for chest pain, and palpitations. Respiratory: Negative for shortness of breath, cough, wheezing, and pleuritic chest pain, Abdomen/GI: Negative for abdominal pain, nausea, vomiting, diarrhea, and constipation, 14:07 Back: Positive for Tailbone pain, Exam: 14:07 Constitutional: This is a well developed, well nourished patient who is awake, alert, ms3 and in no acute distress. ENT: Nares patent. No nasal discharge, no septal abnormalities noted. Tympanic membranes are normal and external auditory canals are clear. Oropharynx with no redness, swelling, or masses, exudates, or evidence of obstruction, uvula midline. Mucous membranes moist. Neck: Trachea midline, no cervical lymphadenopathy. Supple, full range of motion without nuchal rigidity, or vertebral point tenderness. No Meningismus. Chest/axilla: Normal chest wall appearance and motion. Nontender with no deformity. Cardiovascular: Regular rate and rhythm with a normal S1 and S2. No gallops, murmurs, or rubs. Normal PMI, no JVD. No pulse deficits. Respiratory: Lungs have equal breath sounds bilaterally, clear to auscultation and percussion. No rales, rhonchi or wheezes noted. No increased work of breathing, no retractions or nasal flaring. Abdomen/GI: Soft, non-tender, with normal bowel sounds. No distension or tympany. No guarding or rebound. No evidence of tenderness throughout. Skin: Warm, dry with normal turgor. Normal color with no rashes, no lesions, and no evidence of cellulitis. 14:07 Back: pain, that is moderate, of the Sacrum, ROM is normal, normal spinal alignment noted, Vital Signs: 12:31 BP 123 / 87; Pulse 93; Resp 16 S; Temp 98(TE); Pulse Ox 100% on R/A; Weight 77.11 kg aa5 (R); Height 5 ft. 9 in. (R); Pain 9/10; 12:31 Body Mass Index 25.10 (77.11 kg, 175.26 cm) aa5 12:31 Pain Scale: Adult aa5 MDM: 12:43 Patient medically screened. ms3 14:07 Differential diagnosis: fracture, sprain, strain. Data reviewed: vital signs, nurses ms3 notes, radiologic studies, and as a result, I will discharge patient. I considered the following discharge prescriptions or medication management in the emergency department Medications were administered in the Emergency Department. See MAR. Independent interpretation of the following test(s) in the Emergency Department X-Ray: My interpretation is X-ray images reviewed by me reveal sacral fracture. Counseling: I had a detailed discussion with the patient and/or guardian regarding the historical points, exam findings, and any diagnostic results supporting the discharge/admit diagnosis, radiology results, the need for outpatient follow up, to return to the emergency department if symptoms worsen or persist or if there are any questions or concerns that arise at home. Special discussion: I discussed with the patient/guardian in detail that at this point there is no indication for admission to the hospital. It is understood, however, that if the symptoms persist or worsen the patient needs to return immediately for re-evaluation. ED course: Discussed x-ray findings with patient. Patient to follow-up with Dr Bustos in 2 to 3 days for reevaluation. Patient understands agrees with plan. All questions were answered. Return precautions discussed include worsening symptoms, or any other concerns.. 01/26 12:44 Order name: Sacrum And Coccyx XRAY; Complete Time: 13:48 ms3 01/26 12:44 Order name: Lumbar Spine (3 Views) XRAY; Complete Time: 13:48 ms3 Administered Medications: 12:48 Drug: Ibuprofen PO 600 mg PO once Route: PO; aa5 13:45 Follow up: Response: No adverse reaction aa5 Disposition Summary: 01/27/24 14:07 Discharge Ordered Notes: Location: Home ms3 Condition: Stable ms3 Diagnosis - S3/ S4 Sacral fracture ms3 - Fall (on)(from) incline ms3 Followup: ms3 - With: Private Physician - When: 2 - 3 days - Reason: Recheck today's complaints Discharge Instructions: - Discharge Summary Sheet ms3 - Musculoskeletal Pain ms3 Forms: - Medication Reconciliation Form ms3 - Thank You Letter ms3 - Antibiotic Education ms3 - Prescription Opioid Use ms3 - Patient Portal Instructions ms3 - Leadership Thank You Letter ms3 Prescriptions: - acetaminophen-codeine 300-30 mg Oral tablet - take 1 tablet ORAL route every 4 hours as needed for pain; 18 tablet; Refills: ms3 0, Product Selection Permitted Signatures: Dispatcher [employer] EDBee Lombardi RN RN aa5 Ulices Farris DO DO ms3 Corrections: (The following items were deleted from the chart) 15:55 14:07 ED course: Discussed x-ray findings with patient. Patient to follow-up with ms3 primary care physician 2 to 3 days for reevaluation. Patient understands agrees with plan. All questions were answered. Return precautions discussed include worsening symptoms, or any other concerns.. ms3
--- NOTE | 2024-01-27 14:07 | ER ---
Nurse's Notes [facility] Name: Mike Steen Age: 33 yrs Sex: Male : 1990 Arrival Date: 01/27/2024 Time: 12:25 Bed IW1 Private MD: Diagnosis: S3/ S4 Sacral fracture;Fall (on)(from) incline Presentation: 01/26 12:31 Chief complaint: Patient states: fell coming down steps from a F-150 [employer] truck, pt aa5 states "my boot slid and I fell onto my tailbone". Pt c/o pain to tailbone, denies head injury. 12:31 Coronavirus screen: At this time, the client does not indicate any symptoms associated aa5 with coronavirus-19. Ebola Screen: Patient denies travel to an Ebola-affected area in the 21 days before illness onset. Initial Sepsis Screen: Does the patient meet any 2 criteria? No. Patient's initial sepsis screen is negative. Does the patient have a suspected source of infection? No. Patient's initial sepsis screen is negative. Risk Assessment: Do you want to hurt yourself or someone else? Patient reports no desire to harm self or others. Onset of symptoms was January 27, 2024 at 12:00. 12:31 Method Of Arrival: Wheelchair aa5 12:31 Acuity: TICO 4 aa5 Triage Assessment: 12:43 General: Appears uncomfortable, Behavior is calm, cooperative. Pain: Complains of pain aa5 in coccyx Pain currently is 9 out of 10 on a pain scale. Noted to be resistant to movement. EENT: No signs and/or symptoms were reported regarding the EENT system. Neuro: Level of Consciousness is awake, alert, obeys commands, Oriented to person, place, time, situation. Cardiovascular: Patient's skin is warm and dry. Respiratory: Airway is patent Respiratory effort is even, unlabored, Respiratory pattern is regular, symmetrical. Derm: Skin is pink, warm \\T\\ dry. Musculoskeletal: Range of motion: intact in all extremities. Historical: - Allergies: 12:41 No Known Allergies; aa5 - PMHx: 12:31 Anxiety; aa5 - Immunization history:: Adult Immunizations unknown. - Social history:: Smoking status: Patient denies any tobacco usage or history of. Assessment: 13:46 Reassessment: Patient is alert, oriented x 3, equal unlabored respirations, skin aa5 warm/dry/pink. Rounded on pt in ER lobby. . 14:23 Reassessment: Looked for pt in ER lobby to d/c home, pt was not found in ER lobby, went aa5 outside to parking lot and noticed pt in car leaving the ER. Will attempt to reach by phone. . 14:26 Reassessment: attempted to reach pt by phone, left voice mail. . aa5 Vital Signs: 12:31 BP 123 / 87; Pulse 93; Resp 16 S; Temp 98(TE); Pulse Ox 100% on R/A; Weight 77.11 kg aa5 (R); Height 5 ft. 9 in. (R); Pain 9/10; 12:31 Body Mass Index 25.10 (77.11 kg, 175.26 cm) aa5 12:31 Pain Scale: Adult aa5 ED Course: 12:31 Patient arrived in ED. rg4 12:31 Arm band placed on. aa5 12:34 Ulices Farris DO is Attending Physician. ms3 12:41 Triage completed. aa5 13:21 Sacrum And Coccyx XRAY In Process Unspecified. EDMS 13:21 Lumbar Spine (3 Views) XRAY In Process Unspecified. EDMS 14:23 No provider procedures requiring assistance completed. Patient did not have IV access aa5 during this emergency room visit. 14:30 Bee Uribe, RN is Primary Nurse. aa5 Administered Medications: 12:48 Drug: Ibuprofen PO 600 mg PO once Route: PO; aa5 13:45 Follow up: Response: No adverse reaction aa5 Outcome: 14:07 Discharge ordered by . ms3 14:23 Discharged to N/A. Pt left before discharge papers and before prescription was given. aa5 See nursing notes. 14:23 Condition: stable aa5 14:23 Instructed on N/A. 14:30 Patient left the ED. aa5 Signatures: Dispatcher [employer] EDMS Bee Uribe, RN RN aa5 Christina Simon rg4 Ulices Farris DO DO ms3 Corrections: (The following items were deleted from the chart) 12:43 12:31 BP 123 / 87; Pulse 93bpm; Resp 16bpm; Spontaneous; Pulse Ox 100% RA; Temp 98F aa5 Temporal; aa5 12:43 12:31 BP 123 / 87; Pulse 93bpm; Resp 16bpm; Spontaneous; Pulse Ox 100% RA; Temp 98F aa5 Temporal; 77.11 kg Reported; Height 5 ft. 9 in. Reported; BMI: 25.1; aa5 14:30 12:43 Pain: Complains of pain in coccyx Pain currently is 9 out of 10 on a pain scale. aa5 aa5
[2024-01-27 15:05] VITALS: BP 123/87; TEMP 98; O2SAT 100
== END ==
LOC: ER 12:25
DX: S32.16XA Type 3 fracture of sacrum, initial encounter for closed fracture (principal); S32.17XA Type 4 fracture of sacrum, initial encounter for closed fracture; W10.2XXA Fall (on)(from) incline, initial encounter
CPT/HCPCS: 72100; 72220; 99283